=== PATIENT | female | born 1960 | race Caucasian/White ===

== ENCOUNTER → 2016-11-04 | Outpatient (CLI) | payer BC | LOC: MC.RAD 13:40 | DX: Z12.31 Encounter for screening mammogram for malignant neoplasm of breast (principal) ==

== ENCOUNTER 2017-03-13 16:10 | Emergency (ER) | payer BC, OTHER ==
[~2017-03-13] VITALS: Ht 160 cm; Wt 68.2 kg
[2017-03-13 16:18] VITALS: BP 190/91; TEMP 98.2
[2017-03-13] MEDS ORDERED: LIPITOR20 MG PO (16:18)
[2017-03-13] MEDS ORDERED: NORCO 325 MG-51 TAB PO (18:14)
[2017-03-13 19:16] VITALS: PULSE 66
== END 2017-03-13 19:15 | disposition home or self-care (01) ==
LOC: COL.ER 16:10
DX: T22.211A Burn of second degree of right forearm, initial encounter (principal); E78.5 Hyperlipidemia, unspecified; Z98.890 Other specified postprocedural states; X12.XXXA Contact with other hot fluids, initial encounter; Y92.009 Unspecified place in unspecified non-institutional (private) residence as the place of occurrence of the external cause
CPT/HCPCS: J2270

== ENCOUNTER → 2018-02-09 | Outpatient (CLI) | payer BC ==
[~2018-02-09] MED LIST: LIPITOR20 MG PO; NORCO 325 MG-51 TAB PO
== END ==
LOC: MC.RAD 13:35
DX: Z12.31 Encounter for screening mammogram for malignant neoplasm of breast (principal)

== ENCOUNTER → 2019-03-15 | Outpatient (CLI) | payer BC | LOC: MC.RAD 09:49 | DX: Z12.31 Encounter for screening mammogram for malignant neoplasm of breast (principal) ==

== ENCOUNTER → 2020-03-18 | Outpatient (CLI) | payer BC | LOC: MC.RAD 13:08 | DX: Z12.31 Encounter for screening mammogram for malignant neoplasm of breast (principal) ==

== ENCOUNTER → 2021-08-11 | Outpatient (CLI) | payer BC | LOC: MC.RAD 04-02 13:30 | DX: Z12.31 Encounter for screening mammogram for malignant neoplasm of breast (principal) ==

== ENCOUNTER 2022-04-22 09:43 | Outpatient (RCR) | payer BC ==
[~2022-04-22 09:43] MED LIST changes: +CEPHALEXIN500 M1 PO
== END 2022-04-22 09:48 ==
LOC: MKS.ESL.PT 09:43
DX: M25.552 Pain in left hip (principal)

== ENCOUNTER 2022-04-22 09:44 | Outpatient (RCR) | payer BC | END 2022-04-22 09:48 | LOC: MKS.ESL.PT 09:44 | DX: M25.552 Pain in left hip (principal) ==